=== PATIENT | male | born 1950 | race Caucasian/White ===

== ENCOUNTER 2020-09-05 07:00 | Day surgery (SDC) | payer MEDICARE ==
[~2020-09-05] VITALS: Ht 170.2 cm; Wt 109.0 kg
[~2020-09-05 07:00] MED LIST: AMBIEN10 MG PO; BRAIN MIGHT-DH1 EACH PO; CELEXA40 MG PO; ENALAPRIL MALEA10 MG PO; FEOSOL325 MG PO; FISH OIL 1,0001 EAC2 NG; FLOMAX0.4 MG PO; IRON27 MG PO; KEFLEX500 MG PO; LASIX20 MG PO; MELOXICAM15 MG PO; MOVE FREE ULTR1 EAC2 PO; NICOTINE PATCH1 EAC1 TD; NORCO 5-325 TA1 EACH PO; NORCO 7.5-3251 EACH PO; OMEPRAZOLE20 M1 PO; POTASSIUM CHLO10 MEQ PO; TRIAMTERENE-HC1 EAC3 PO; ULTRAM50 MG PO; VENTOLIN HFA18 GM INH; VIRT-VITE TABL1 EACH PO; VITAMIN B122500 MC1 PO; VITAMIN D31000 UNIT PO; ZYRTEC10 MG PO
--- NOTE | 2020-09-05 08:55 | NUR ---
PT ALERT, ORIENTED AND HAS NO QUESTIONS. PT LOOKING FORWARD TO RESULTS OF SURGERY TODAY. GAVE BLESSING, WILL FOLLOW NEEDED
[2020-09-05] MEDS ORDERED: CELECOXIB200 MG PO (11:09)
[2020-09-05] MEDS ORDERED: HYDROCODON-ACE1 EA11 PO (11:09)
--- NOTE | 2020-09-05 11:32 | NUR ---
09/05/20 1132 Collette Izaguirre 1114 PT ARRIVED IN PACU SLEEPY WITH NO C/O'S. L ARM IN IMMOBILIZER. 1120 C/O URGE TO VOID. VOIDED 450ML CLEAR YELLOW URINE. 1130 RESTING WITH NO C/O'S. REU.
--- NOTE | 2020-09-05 12:00 | NUR ---
1145 PT BACK TO ROOM FROM PACU AWAKE AND ALERT DENIES PAIN AND NAUSEA, PT GIVEN JELLO AND WATER TOLERATES WELL.
--- NOTE | 2020-09-05 12:28 | NUR ---
1230 PT VOIDED IN PACU BEFORE COMING BACK TO HIS ROOM. DISCHARGE INSTRUCTIONS GIVEN TO PT HE VOICED UNDERSTANDING
--- NOTE | 2020-09-05 12:35 | OR ---
[facility] [place] [facility] [address] [place], [place] [address] Signed DATE OF OPERATION: 09/05/2020 SURGEON: Carlos Manuel Burch MD PREOPERATIVE DIAGNOSIS: Carpometacarpal arthrosis, left thumb. POSTOPERATIVE DIAGNOSIS: Carpometacarpal arthrosis, left thumb. PROCEDURE PERFORMED: Carpometacarpal ligament reconstruction and tendon interposition. SAND MILL OPERATOR: America Dean PA-C. America was present and critical for all portions of procedure. ANESTHESIA: General. BLOOD LOSS: None. TOURNIQUET TIME: 65 minutes. IMPLANTS: Arthrex 4 mm screw. BRIEF HISTORY: Frances is a 70-year-old gentleman with painful CMC arthritis. Risks and benefits of operative treatment were discussed with him after nonoperative treatment failed to control his symptoms. DESCRIPTION OF PROCEDURE: Once consent was obtained, he was taken to the operating room after adequate anesthesia. He was placed on operating table. All downside pressure points were well padded. The left arm was placed in well-padded proximal arm tourniquet and prepped and draped in a standard sterile fashion. Leg was exsanguinated using Esmarch bandage. Tourniquet inflated to 200 mmHg. The CMC joint was approached through a curvilinear volar Electronically Signed By: CARLOS MANUEL BURCH MD 09/05/20 1235 PATIENT NAME: FRANCES HERNANDEZ OPERATIVE REPORT DATE OF : 46 REPORT #: [id number] PHYSICIAN: CARLOS MANUEL BURCH MD PCP: BERNABE GALARZA MD REPORT IS CONFIDENTIAL AND NOT TO BE RELEASED WITHOUT AUTHORIZATION [facility] [place] [facility] [address] [place], [place] [address] Signed incision, carried through skin and subcutaneous tissue. The volar capsule was then incised longitudinally and elevated off the trapezium at the base of the first metacarpal. This was taken all the way over to the FCR retracted and protected throughout the procedure. The trapezium was then dissected free from surrounding soft tissue and split into 4 quarters with an osteotome. It was then removed piecemeal and all bony debris was removed. Once this was accomplished, the harvest of the FCR was undertaken. The FCR was palpated proximally in the forearm and a longitudinal incision was made in the skin, carried down to the tendon. The tendon was then dissected free of surrounding soft tissue and transected. It was brought back into the wrist and down to the base of the 2nd metacarpal. Once this was accomplished, it was trimmed to an appropriate length and sutured with #2-0 FiberWire. The guide pin for the 4 mm drill was then placed across the base of the 2nd metacarpal obliquely. This was then overdrilled using the 4 mm drill. We then passed these sutures through the base of the metacarpal, pulling the tendon across to the opposite side. Using the push-pull method, the base of the metacarpal and the tendon was folded back on itself. Once it was properly tensioned, the 4 mm screw was placed in the drill hole and screwed into place. The FCR was then sutured back to the base of the FCR using 0 Vicryl. Once this was accomplished, the remaining tendon was sutured into an anchovy and stepped in the joint. The wound was then copiously irrigated with normal saline. The arthrotomy was closed using 2-0 Vicryl. The subcutaneous tissue and skin were closed with 3-0 Monocryl and Steri-Strips were applied. The proximal incision was closed also subcutaneously. The wounds were dressed with sterile dressing and gauze, and he was placed in a thumb spica splint. He tolerated the procedure well. All sponge, needle, and instrument counts were correct. Carlos Manuel Burch MD BA/MODL /[id number] Copies: ~ Electronically Signed By: CARLOS MANUEL BURCH MD 09/05/20 1235 PATIENT NAME: FRANCES HERNANDEZ OPERATIVE REPORT DATE OF : 46 REPORT #: [id number] PHYSICIAN: CARLOS MANUEL BURCH MD PCP: BERNABE GALARZA MD REPORT IS CONFIDENTIAL AND NOT TO BE RELEASED WITHOUT AUTHORIZATION
--- NOTE | 2020-09-05 12:55 | NUR ---
1230 PT REPORTS READINESS TO GO HOME CMS INTACT TO LT HAND HELPED PT DRESS AND HELPED HIM GET SLING ON CORRECTLY
== END 2020-09-05 12:45 | disposition home or self-care (01) ==
LOC: DS 07:00
PROVIDERS: ATTEND Specialist
PROC: 0LX60ZZ Transfer Left Lower Arm and Wrist Tendon, Open Approach (ICD-10-PCS; 2020-09-05)
PROC: 0LS80ZZ Reposition Left Hand Tendon, Open Approach (ICD-10-PCS; principal; 2020-09-05 09:00)
DX: M18.12 Unilateral primary osteoarthritis of first carpometacarpal joint, left hand (principal); F17.210 Nicotine dependence, cigarettes, uncomplicated; Z88.5 Allergy status to narcotic agent
CPT/HCPCS: 01830; 64417; 76942; C1713; J0690; J1100; J2001; J2250; J2704; J2795; J7121

== ENCOUNTER 2021-08-01 11:51 | Day surgery (SDC) | payer MEDICARE ==
[~2021-08-01] VITALS: Ht 170.2 cm; Wt 115.5 kg
--- NOTE | ~2021-08-01 | OR ---
[facility] [address] [place], [place] [address] Draft DATE OF OPERATION: SURGEON: Melva Buck MD PREOPERATIVE DIAGNOSIS: History of multiple polyps. POSTOPERATIVE DIAGNOSIS: Polyps x7. PROCEDURE: Total colonoscopy to cecum with cold morcellation polypectomy x3, cold snare polypectomy x4. ANESTHESIA: Intravenous sedation, fentanyl 100 mcg and Versed 8 mg. INDICATION: This 70-year-old white man is a patient of ZANE Carter and has history of multiple polyps. He is symptom-free currently. He is admitted at this time to undergo colonoscopy. He understands the risks of bleeding, infection, and perforation. FINDINGS: The prep was adequate, but not great. There are definitely bits of fiber and so forth and compliance to the low-fiber diet may have been compromised. Complete colonoscopy was undertaken of the cecum. He had numerous polyps including right colon, hepatic flexure, splenic flexure, left colon and sigmoid. All were excised completely, seven in total were removed. DESCRIPTION OF PROCEDURE: The patient was brought to the endoscopy suite and placed in lateral decubitus position, given intravenous sedation to the point of slurred speech and nystagmus. Digital rectal examination was normal. An Olympus video colonoscope was passed in the rectum and manipulated throughout the colon. He is noted to have a turbid and somewhat fiber laden (but no well-formed stool) bowel prep. Complete colonoscopy was undertaken to the cecum. The scope was withdrawn from that point. The mid ascending colon has a small sessile polyp. This was excised with cold morcellation technique. Further withdrawal showed another similar such polyp at the hepatic flexure, which was similarly excised. Further withdrawal to the splenic flexure showed a small polyp excised with cold morcellation technique and another at the PATIENT NAME: FRANCES HERNANDEZ OPERATIVE REPORT DATE OF : 46 REPORT #: [id number] PHYSICIAN: MELVA BUCK MD PCP: YUDI BATES PAC REPORT IS CONFIDENTIAL AND NOT TO BE RELEASED WITHOUT AUTHORIZATION [facility] [address] [place], [place] [address] Draft proximal descending colon excised with cold snare technique. Further withdrawal showed a polyp in the distal descending proximal sigmoid, which was excised with cold snare. Another with cold snare not far from that and withdrawn to the mid sigmoid, plan for a snare and cold excision of two additional polyps. In total, seven polyps were excised. The scope was withdrawn to the rectum. Retroflexed view was normal. Scope was removed. The patient was taken to the recovery room in good condition. CONCLUDING DIAGNOSIS: Multiple polyps. PLAN: We would recommend repeat colonoscopy in 1 to 2 years depending on the histologic findings of the polyps. If hyperplastic, can go much further if adenoma sooner. He will return to the ongoing care of ZANE Carter otherwise. MD KRUPA Montenegro/OSWALDO /[id number] cc: ZANE CARTER Copies: ~ PATIENT NAME: FRANCES HERNANDEZ OPERATIVE REPORT DATE OF : 46 REPORT #: [id number] PHYSICIAN: MELVA BUCK MD PCP: YUDI BATES PAC REPORT IS CONFIDENTIAL AND NOT TO BE RELEASED WITHOUT AUTHORIZATION
[~2021-08-01 11:51] MED LIST changes: +CELECOXIB200 MG PO; +FLOVENT HFA12 GM INH; +HYDROCODON-ACE1 EA11 PO; +MOBIC15 MG PO
--- NOTE | 2021-08-01 14:46 | NUR ---
08/01/21 Carina6 Lilly Carmona 1446-PATIENT ARRIVED TO PACU ON 2L NC RR EVEN PATIENT AWAKE DENIES PAIN OR NAUSEA. IVF INFUSING. ABDOMEN SOFT ENCOURAGED TO PASS GAS. PATIENT DOZES TO SLEEP.
--- NOTE | 2021-08-03 16:38 | PATH ---
[facility] [address] [place], [place] [address] Signed SPECIMEN(S): A ASCENDING/RIGHT COLON POLYP SPECIMEN(S): B HEPATIC FLEXURE POLYP SPECIMEN(S): C SPLENIC FLEXURE POLYP X2 SPECIMEN(S): D PROXIMAL DESCENDING/LEFT COLON POLYP SPECIMEN(S): E SIGMOID POLYP X2 SPECIMEN(S): F SIGMOID POLYP X2 SPECIMEN(S): G SIGMOID POLYPS SPECIMEN SOURCE: A. ASCENDING/RIGHT COLON POLYP B. HEPATIC FLEXURE POLYP C. SPLENIC FLEXURE POLYP X2 D. PROXIMAL DESCENDING/LEFT COLON POLYP E. SIGMOID POLYP X2 F. SIGMOID POLYP X2 G. SIGMOID POLYPS CLINICAL HISTORY: Colonoscopy. History of polyps. Postop: Multiple polyps. FINAL PATHOLOGIC DIAGNOSIS: A. Colon, ascending/right, polyp, polypectomy: - Hyperplastic polyp. - Negative for dysplasia or malignancy. B. Colon, hepatic flexure, polyp, polypectomy: - Fragments of tubular adenoma. - Negative for high-grade dysplasia or malignancy. C. Colon, splenic flexure, polyps x 2, polypectomies: - Tubular adenoma (one fragment). - Fragments of colonic mucosa with hyperplastic mucosal changes. - Negative for malignancy. D. Colon, proximal descending/left, polyp, polypectomy: - Hyperplastic polyp. - Negative for dysplasia or malignancy. E. Colon, sigmoid, polyps x 2, polypectomies: - Tubular adenoma; negative for high-grade dysplasia. - Hyperplastic polyp. - Negative for malignancy. F. Colon, sigmoid, polyps x 2, polypectomies: - Hyperplastic polyp. - Fragment of colonic mucosa with hyperplastic mucosal changes. PATIENT NAME: FRANCES HERNANDEZ PATHOLOGY DATE OF : 46 REPORT #: [id number] PHYSICIAN: REBEL WHITNEY PCP: YUDI BATES PAC REPORT IS CONFIDENTIAL AND NOT TO BE RELEASED WITHOUT AUTHORIZATION [facility] [address] [place], [place] [address] Signed - Negative for dysplasia or malignancy. G. Colon, sigmoid, polyps, polypectomies: - Fragments of tubular adenoma(s). - Negative for high-grade dysplasia or malignancy. COMMENT: Regarding specimens C, D, and F: Multiple additional deeper levels were examined. NAL:cml:C2NR MICROSCOPIC EXAMINATION: Histologic sections of all submitted blocks are examined by light microscopy. These findings, together with the gross examination, support the pathologic diagnosis. GROSS DESCRIPTION: Seven specimens are received in seven containers, labeled "MW." A. The specimen, labeled "MW, 1," and designated on the requisition "ascending/right colon," is received in formalin and consists of one wu soft tissue fragment that measures 0.3 cm in greatest dimension. The specimen is entirely submitted in cassette (A1). B. The specimen, labeled "MW, 2," and designated on the requisition "hepatic flexure polyp," is received in formalin and consists of two wu soft tissue fragments that measure 0.2-0.3 cm in greatest dimension. The specimen is entirely submitted in cassette (B1). C. The specimen, labeled "MW, 3," and designated on the requisition "splenic flexure polyps 2," is received in formalin and consists of five wu soft tissue fragments that measure 0.3-0.4 cm in greatest dimension. The specimen is entirely submitted in cassette (C1). D. The specimen, labeled "MW, 4," and designated on the requisition "proximal descending/left colon," is received in formalin and consists of one wu soft tissue fragment that measures 0.3 cm in greatest dimension. The specimen is entirely submitted in cassette (D1). E. The specimen, labeled "MW, 5," and designated on the requisition "sigmoid polyps x 2," is received in formalin and consists of three wu soft tissue fragments that measure 0.3-0.6 cm in greatest dimension. The specimen is entirely submitted in cassette (E1). F. The specimen, labeled "MW, 6," and designated on the requisition "sigmoid polyp x 2," is received in formalin and consists of two wu soft tissue fragments that measure 0.3-0.7 cm in greatest PATIENT NAME: FRANCES HERNANDEZ PATHOLOGY DATE OF : 46 REPORT #: [id number] PHYSICIAN: REBEL WHITNEY PCP: YUDI BATES PAC REPORT IS CONFIDENTIAL AND NOT TO BE RELEASED WITHOUT AUTHORIZATION [facility] [address] [place], [place] [address] Signed dimension. The specimen is entirely submitted in cassette (F1). G. The specimen, labeled "MW, 7," and designated on the requisition(and client) "sigmoid polyps," is received in formalin and consists of four polypoid wu soft tissue fragments with vegetative matter that measure 0.3-0.6 cm in greatest dimension. The specimen is entirely submitted in cassette (G1). AT (under the direct supervision of a pathologist) The Gross Description was prepared using a voice recognition system. The report was reviewed for accuracy; however, sound-alike word errors, addition and/or deletions may occur. If there is any question about this report, please contact Client Services. PERFORMING LABORATORY: The technical component was performed by [employer], [address] [place] [address] (CLIA# [id number]). [facility], [address] [place] [id number] (CLIA# [id number]). Diagnostician: Tierra Chu MD Pathologist Electronically Signed 08/03/2021 Copies: ~ PATIENT NAME: FRANCSE HERNANDEZ PATHOLOGY DATE OF : 46 REPORT #: [id number] PHYSICIAN: REBEL WHITNEY PCP: YUDI BATES PAC REPORT IS CONFIDENTIAL AND NOT TO BE RELEASED WITHOUT AUTHORIZATION
== END 2021-08-01 15:50 | disposition home or self-care (01) ==
LOC: OPS 11:51 → DS 11:55 → OPS 13:00
PROVIDERS: ATTEND Surgery
PROC: 0DBL8ZX Excision of Transverse Colon, Via Natural or Artificial Opening Endoscopic, Diagnostic (ICD-10-PCS; 2021-08-01)
PROC: 0DBM8ZX Excision of Descending Colon, Via Natural or Artificial Opening Endoscopic, Diagnostic (ICD-10-PCS; 2021-08-01)
PROC: 0DBN8ZX Excision of Sigmoid Colon, Via Natural or Artificial Opening Endoscopic, Diagnostic (ICD-10-PCS; 2021-08-01)
PROC: 0DBK8ZX Excision of Ascending Colon, Via Natural or Artificial Opening Endoscopic, Diagnostic (ICD-10-PCS; principal; 2021-08-01 13:00)
DX: Z12.11 Encounter for screening for malignant neoplasm of colon (principal); D12.2 Benign neoplasm of ascending colon; D12.3 Benign neoplasm of transverse colon; D12.5 Benign neoplasm of sigmoid colon; I10 Essential (primary) hypertension; G47.33 Obstructive sleep apnea (adult) (pediatric); Z72.0 Tobacco use; Z90.49 Acquired absence of other specified parts of digestive tract; Z87.19 Personal history of other diseases of the digestive system
CPT/HCPCS: 88305; 99153; G0500; J2250; J3010; J7121

== ENCOUNTER 2023-02-04 06:40 | Day surgery (SDC) | payer MEDICARE ==
[~2023-02-04] VITALS: Ht 170.2 cm; Wt 112.7 kg
[~2023-02-04 06:40] MED LIST changes: +VARENICLINE TART1 MG PO
[2023-02-04 06:55] VITALS: BP 135/75
--- NOTE | 2023-02-04 08:40 | NUR ---
02/04/23 0840 Zane,Charlotte 0828 PT ARRIVED TO PACU ON 2L VIA NC, PT ASLEEP AND RN ENCOURAGING DEEP BREATHING, PT WAKES TO VERBAL STIMULI AND ABLE TO FOLLOW COMMANDS O2 INCREASED WITH DEEP BREATHING. 0833 HOB INCREASED AND DEEP BREATHING CONTINUED TO BE ENCOURAGED DUE TO DECREASED O2 TO UPPER 80S, O2 INCREASED TO LOW 90S WITH DEEP BREATHING. 0836 MD AT BEDSIDE TALKING TO PT.
[2023-02-04 10:30] VITALS: BP 93/55
--- NOTE | 2023-02-05 19:46 | OR ---
[facility] [address] [place], [place] [address] Signed DATE OF OPERATION: 02/04/2023 SURGEON: Melva Buck MD PREOPERATIVE DIAGNOSIS: History of multiple polyps, 2021 (4/7 tubular adenomas). POSTOPERATIVE DIAGNOSIS: Multiple polyps (7). PROCEDURE: Total colonoscopy to cecum with cold morcellation polypectomy x4, cold snare polypectomy x3. ANESTHESIA: Intravenous sedation, fentanyl 100 mcg and versed 6 mg. INDICATION: This 72-year-old white man is patient of ZANE Price and underwent colonoscopy by me on August 01, 2021, where he had multiple polyps once again. Report confirmed 7 polyps excised, 4 of them tubular adenomas, the other hyperplastic. He is symptom free. He is here for short-term followup given the number of polyps previously excised. He understands the risk of bleeding, infection, and perforation related to colonoscopy and wished to proceed. FINDINGS: The prep was adequate. Complete colonoscopy was undertaken to the cecum. He had 7 polyps in total, 4 of which were excised with cold morcellation technique and 3 with cold snare technique. DESCRIPTION OF PROCEDURE: The patient was brought to the endoscopy suite and placed in lateral decubitus position, given intravenous sedation to the point of slurred speech and nystagmus. Digital rectal examination was normal. An Olympus video colonoscope was passed in the rectum and manipulated into the colon and at the mid transverse colon, a small polyp was noted, this was excised with cold morcellation technique. The scope was advanced further to the hepatic flexure, where another similar such polyp was noted. It too was excised. The scope was ultimately advanced to the cecum. The scope was then withdrawn from the cecum and examination Electronically Signed By: MELVA BUCK MD 02/05/23 194 PATIENT NAME: FRANCES HERNANDEZ OPERATIVE REPORT DATE OF : 46 REPORT #: [id number] PHYSICIAN: MELVA BUCK MD PCP: YUDI BATES PAC REPORT IS CONFIDENTIAL AND NOT TO BE RELEASED WITHOUT AUTHORIZATION [facility] [address] [place], [place] [address] Signed undertaken showed no sign of polyp until the left colon where small polyps were noted in sequence. They were excised with cold snare technique x3. An additional polyp at 70 cm in the proximal sigmoid was excised with cold morcellation technique. In aggregate, 7 polyps were excised. The rectum was normal. Scope was removed and the patient was taken to recovery room in good condition. CONCLUDING DIAGNOSIS: Multiple polyps. PLAN: Recommend repeat colonoscopy in one year given the multitude of polyps identified. MD KRUPA Monteneg[place]/OSWALDO /[id number] cc: Yudi Bates PA-C Copies: ~ Electronically Signed By: MELVA BUCK MD 02/05/23 1946 PATIENT NAME: FRANCES HERNANDEZ OPERATIVE REPORT DATE OF : 46 REPORT #: [id number] PHYSICIAN: MELVA BUCK MD PCP: YUDI BATES PAC REPORT IS CONFIDENTIAL AND NOT TO BE RELEASED WITHOUT AUTHORIZATION
--- NOTE | 2023-02-07 13:54 | PATH ---
[facility] [address] [place] [address] Signed SPECIMEN(S): A TRANSVERSE COLON POLYP SPECIMEN(S): B HEPATIC FLEXURE COLON POLYP SPECIMEN(S): C DESCENDING/LEFT COLON POLYP SPECIMEN(S): D DESCENDING/LEFT COLON POLYP SPECIMEN(S): E DESCENDING/LEFT COLON POLYP SPECIMEN(S): F POLYP AT 70 CM SPECIMEN(S): G SIGMOID COLON POLYP SPECIMEN SOURCE: A. TRANSVERSE COLON POLYP B. HEPATIC FLEXURE COLON POLYP C. DESCENDING/LEFT COLON POLYP D. DESCENDING/LEFT COLON POLYP E. DESCENDING/LEFT COLON POLYP F. POLYP AT 70 CM G. SIGMOID COLON POLYP CLINICAL HISTORY: Pre: July 2021 hx tubular adenomas. Post: Multiple polyps. FINAL PATHOLOGIC DIAGNOSIS: A. Transverse colon polyp: - Tubular adenoma (multiple fragments). B. Hepatic flexure colon polyp: - Tubular adenoma (four fragments). C. Descending / left colon polyp: - Tubular adenoma (one fragment). D. Descending / left colon polyp: - Tubular adenoma (multiple fragments). E. Descending / left colon polyp: - Hyperplastic polyp (two fragments). F. Polyp at 70 cm: - Hyperplastic polyp (one fragment). G. Sigmoid colon polyp: - Hyperplastic polyp (three fragments). JVR:cox branson MICROSCOPIC EXAMINATION: Histologic sections of all submitted blocks are examined by light microscopy. These findings, together with the gross examination, support the pathologic diagnosis. PATIENT NAME: MARYFRANCES CHEN PATTIE PATHOLOGY DATE OF : 46 REPORT #: [id number] PHYSICIAN: REBEL WHITNEY PCP: YUDI BATES PAC REPORT IS CONFIDENTIAL AND NOT TO BE RELEASED WITHOUT AUTHORIZATION [facility] [address] [place], [place] [address] Signed GROSS DESCRIPTION: A. The specimen, labeled and designated "Mary, transverse colon polyp," is received in formalin and consists of four wu soft tissue fragments, ranging from 0.1-0.2 cm. Entirely submitted in (A1). B. The specimen, labeled and designated "Mary, hepatic flexure colon polyp," is received in formalin and consists of five wu soft tissue fragments, ranging from 0.1-0.3 cm. Entirely submitted in (B1). C. The specimen, labeled and designated "Mary, descending/left colon polyps," is received in formalin and consists of one wu soft tissue fragment, 0.6 cm. Entirely submitted in (C1). D. The specimen, labeled and designated "Mary, descending/left colon polyp," is received in formalin and consists of three wu soft tissue fragments, ranging from 0.4-0.6 cm. Entirely submitted in (D1). E. The specimen, labeled and designated "Mary, descending/left colon polyp," is received in formalin and consists of two wu soft tissue fragments, ranging from 0.1-0.2 cm. Entirely submitted in (E1). F. The specimen, labeled and designated "Mary, polyp at 70 cm," is received in formalin and consists of five wu soft tissue fragments, ranging from 0.1-0.3 cm. Entirely submitted in (F1). G. The specimen, labeled and designated "Mary, sigmoid colon polyp," is received in formalin and consists of three wu soft tissue fragments, ranging from 0.2-0.3 cm. Entirely submitted in (G1). VB (under the direct supervision of a pathologist) The Gross Description was prepared using a voice recognition system. The report was reviewed for accuracy; however, sound-alike word errors, addition and/or deletions may occur. If there is any question about this report, please contact Client Services. PERFORMING LABORATORY: Technical component was performed by [employer] [facility], [address] [place] [id number] (CLIA# [id number]). Professional interpretation was performed by [facility], [address] [place] [id number] (CLIA#: [id number]). Diagnostician: Ap Fitzpatrick MD Pathologist PATIENT NAME: FRANCES HERNANDEZ PATHOLOGY DATE OF : 46 REPORT #: [id number] PHYSICIAN: REBEL WHITNEY PCP: YUDI BATES PAC REPORT IS CONFIDENTIAL AND NOT TO BE RELEASED WITHOUT AUTHORIZATION [facility] [address] [place] [address] Signed Electronically Signed 02/07/2023 Copies: ~ PATIENT NAME: FRANCES HERNANDEZ PATHOLOGY DATE OF : 46 REPORT #: [id number] PHYSICIAN: REBEL WHITNEY PCP: YUDI BATES PAC REPORT IS CONFIDENTIAL AND NOT TO BE RELEASED WITHOUT AUTHORIZATION
== END 2023-02-04 10:48 | disposition home or self-care (01) ==
LOC: DS 06:40 → OPS 06:40 → DS 07:30 → OPS 07:30
PROVIDERS: ATTEND Surgery
PROC: 0DBN8ZZ Excision of Sigmoid Colon, Via Natural or Artificial Opening Endoscopic (ICD-10-PCS; principal; 2023-02-04 07:30)
DX: Z12.11 Encounter for screening for malignant neoplasm of colon (principal); Z86.010 Personal history of colon polyps; E66.9 Obesity, unspecified; G47.33 Obstructive sleep apnea (adult) (pediatric); Z90.49 Acquired absence of other specified parts of digestive tract; I10 Essential (primary) hypertension; Z68.38 Body mass index [BMI] 38.0-38.9, adult; D12.4 Benign neoplasm of descending colon; D12.3 Benign neoplasm of transverse colon; K63.5 Polyp of colon
CPT/HCPCS: 88305; 99153; G0500; J2250; J3010; J7121

== ENCOUNTER 2024-06-01 07:09 | Day surgery (SDC) | payer MEDICARE, OTHER ==
[~2024-06-01] VITALS: Ht 170.2 cm; Wt 98.6 kg
[~2024-06-01 07:09] MED LIST changes: -AMBIEN10 MG PO; -BRAIN MIGHT-DH1 EACH PO; -CELECOXIB200 MG PO; -CELEXA40 MG PO; -ENALAPRIL MALEA10 MG PO; -FEOSOL325 MG PO; -FISH OIL 1,0001 EAC2 NG; -FLOMAX0.4 MG PO; -FLOVENT HFA12 GM INH; -HYDROCODON-ACE1 EA11 PO; +IBLOOD GLUCOSE TEST STRIP 1 EA TEST VI PRN; -IRON27 MG PO; -KEFLEX500 MG PO; +LACTATED RINGER'S 1,000 ML IV SCH; -LASIX20 MG PO; +LIDOCAINE HCL 1% 5 ML SDV INJ ONE; -MELOXICAM15 MG PO; +MIDAZOLAM HCL 5 MG/5 ML VIAL IV PRN; -MOBIC15 MG PO; -MOVE FREE ULTR1 EAC2 PO; -NICOTINE PATCH1 EAC1 TD; -NORCO 5-325 TA1 EACH PO; -NORCO 7.5-3251 EACH PO; -OMEPRAZOLE20 M1 PO; -POTASSIUM CHLO10 MEQ PO; -TRIAMTERENE-HC1 EAC3 PO; -ULTRAM50 MG PO; -VARENICLINE TART1 MG PO; -VENTOLIN HFA18 GM INH; -VIRT-VITE TABL1 EACH PO; -VITAMIN B122500 MC1 PO; -VITAMIN D31000 UNIT PO; -ZYRTEC10 MG PO; +fentaNYL citrate 100 MCG/2 ML VIAL IV PRN
--- NOTE | 2024-06-01 07:27 | NUR ---
PT NOT AVAILABLE FOR VISIT. PROVIDED PRAYER.
[2024-06-01] MEDS ORDERED: fentaNYL citrate 100 MCG/2 ML VIAL ONE (08:12)
[2024-06-01] MEDS ORDERED: MIDAZOLAM HCL 5 MG/5 ML VIAL ONE (08:12)
--- NOTE | 2024-06-01 08:34 | NUR ---
BRUISING TO RIGHT POSTERIOR THIGH
--- NOTE | 2024-06-01 09:33 | NUR ---
06/01/24 0933 Allison Burch 0913 PT TO PACU AWAKE AND ALERT CONVERSING WITH STAFF PT DENIES PAIN AND NAUSEA.
[2024-06-01 09:45] VITALS: BP 115/71
== END 2024-06-01 09:50 | disposition home or self-care (01) ==
LOC: OPS 07:09 → DS 07:10 → OPS 07:30
PROVIDERS: ATTEND Surgery
PROC: 0DBG8ZZ Excision of Left Large Intestine, Via Natural or Artificial Opening Endoscopic (ICD-10-PCS; principal; 2024-06-01)
PROC: 0DBL8ZZ Excision of Transverse Colon, Via Natural or Artificial Opening Endoscopic (ICD-10-PCS; 2024-06-01)
PROC: 0DBF8ZZ Excision of Right Large Intestine, Via Natural or Artificial Opening Endoscopic (ICD-10-PCS; 2024-06-01)
DX: Z12.11 Encounter for screening for malignant neoplasm of colon (principal); D12.2 Benign neoplasm of ascending colon; D12.3 Benign neoplasm of transverse colon; D12.4 Benign neoplasm of descending colon; D12.5 Benign neoplasm of sigmoid colon; E66.9 Obesity, unspecified; I10 Essential (primary) hypertension; G47.33 Obstructive sleep apnea (adult) (pediatric); M81.0 Age-related osteoporosis without current pathological fracture; Z98.84 Bariatric surgery status
CPT/HCPCS: 88305; 99153; G0500; J2250; J3010; J7121